=== PATIENT | male | born 1935 | race Caucasian/White ===

== ENCOUNTER 2017-03-04 07:21 | Day surgery (SDC) | payer MEDICARE, OTHER ==
--- NOTE | ~2017-03-04 | EGD ---
EGD REPORT [facility] [address] [address] NAME: SEGUNDO GALEAS : 39 STATUS : REG [facility] [place] PAT#: [id number] AGE: 81 ADM/REG DATE : 03/04/17 MR#: [id number] REPORT SERV DATE: 03/04/17 DICTATED BY: LESLEY HAN DATE: 03/04/17 REPORT STATUS : Draft TRANSCRIBED BY: [facility] [facility] DATE: 03/04/17 Endoscopy Center Patient Name: Segundo Galeas Date of : 1935 Attending MD: LESLEY HAN MD Procedure Date No Time: 03/04/2017 Procedure: Colonoscopy Indications: High risk colon cancer surveillance: Personal history of colonic polyps Referring MD: CHRISTIANNE AGUILAR Medicines: as per anesthesia Complications: No immediate complications. Procedure: Pre-Anesthesia Assessment: - ASA Grade Assessment: II - A patient with mild systemic disease. After I obtained informed consent, the scope was passed under direct vision. Throughout the procedure, the patient's blood pressure, pulse, and oxygen saturations were monitored continuously. The PCF [id number] was introduced through the anus and advanced to the cecum, identified by appendiceal orifice and ileocecal valve. The colonoscopy was performed without difficulty. The patient tolerated the procedure. The quality of the bowel preparation was adequate to identify polyps. Findings: The perianal and digital rectal examinations were normal. A semi-sessile polyp was found in the distal transverse colon. The polyp was 7 mm in size. The polyp was removed with a jumbo cold forceps. Resection and retrieval were complete. A sessile polyp was found in the ascending colon. The polyp was 6 mm in size. The polyp was removed with a jumbo cold forceps. Resection and retrieval were complete. A sessile polyp was found in the rectum. The polyp was 4 mm in size. The polyp was removed with a jumbo cold forceps. Resection and retrieval were complete. Internal hemorrhoids were found during endoscopy and were moderate. xrt proctitis Impression: - One 7 mm polyp in the distal transverse colon. Resected and retrieved. - One 6 mm polyp in the ascending colon. Resected and retrieved. - One 4 mm polyp in the rectum. Resected and retrieved. - Internal hemorrhoids. EGD REPORT [address] [address] NAME: SEGUNDO GALEAS : [birth year] STATUS : REG [facility]#: [id number] AGE: 81 ADM/REG DATE : 03/04/17 MR#: [id number] REPORT SERV DATE: 03/04/17 DICTATED BY: LESLEY HAN DATE: 03/04/17 REPORT STATUS : Draft TRANSCRIBED BY: [employer] DATE: 03/04/17 Recommendation: - Await pathology results. Procedure Code(s): --- Professional --- 17863, Colonoscopy, flexible, proximal to splenic flexure; with biopsy, single or multiple Diagnosis Code(s): --- Professional --- K62.1, Rectal polyp D12.2, Benign neoplasm of ascending colon D12.3, Benign neoplasm of transverse colon K64.8, Other hemorrhoids Z86.010, Personal history of colonic polyps CPT copyright 2013 [employer]. All rights reserved. The codes documented in this report are preliminary and upon draw frame tender review may be revised to meet current compliance requirements. LESLEY HAN MD 03/04/2017 10:17 AM This report has been signed electronically. Number of Addenda: 0 Note Initiated On: 03/04/2017 9:30 AM Scope Withdrawal Time 0 hours 10 minutes 26 seconds [address] [id number]
[~2017-03-04 07:21] MED LIST: ASAB PO; DIOVAN320 MG PO; FISH-EPA1000 MG PO; PRAV10 PO; PRILO PO; SUCR PO; VITAMIN D400 UNI1 PO; VITC500 PO; VITE PO; VITE1000 PO; ZOLOFT25 MG PO; [UNRECOGNIZED DRUG - OTHER] RC
== END 2017-03-04 23:59 | disposition home or self-care (01) ==
LOC: DMU 07:21
PROVIDERS: Internal Medicine Gastroenterology
PROC: 0DBP8ZZ Excision of Rectum, Via Natural or Artificial Opening Endoscopic (ICD-10-PCS; 2017-03-04)
PROC: 0DBK8ZZ Excision of Ascending Colon, Via Natural or Artificial Opening Endoscopic (ICD-10-PCS; 2017-03-04)
PROC: 0DBL8ZZ Excision of Transverse Colon, Via Natural or Artificial Opening Endoscopic (ICD-10-PCS; principal; 2017-03-04 09:00)
DX: Z12.11 Encounter for screening for malignant neoplasm of colon (principal); D12.2 Benign neoplasm of ascending colon; D12.3 Benign neoplasm of transverse colon; K62.1 Rectal polyp; K64.8 Other hemorrhoids; Z86.010 Personal history of colon polyps; I10 Essential (primary) hypertension; Z98.41 Cataract extraction status, right eye; Z98.42 Cataract extraction status, left eye; Z98.890 Other specified postprocedural states
CPT/HCPCS: 88305